=== PATIENT | female | born 1995 | race Caucasian/White ===

== ENCOUNTER 2021-09-22 23:42 | Observation (INO) | payer MEDICAID ==
[2021-09-23 00:59] LABS: CLARITY URINE CLEAR (CLEAR); COLOR URINE YELLOW (YELLOW); KETONES URINE NEGATIVE (NEGATIVE); LEUKOCYTE ESTERASE URINE NEGATIVE (NEGATIVE); NITRITE URINE NEGATIVE (NEGATIVE); OCCULT BLOOD URINE NEGATIVE (NEGATIVE); PH URINE 6.5 (4.5-8.0); PROTEIN URINE NEGATIVE (NEGATIVE); UROBILINOGEN URINE 0.2 E.U./dL (0.2-1.0)
[2021-09-23 01:25] LABS: *AMPHETAMINES SCREEN URINE NEGATIVE (NEGATIVE); *BARBITURATES SCREEN URINE NEGATIVE (NEGATIVE); *BENZODIAZEPINES SCREEN URINE NEGATIVE (NEGATIVE); *COCAINE SCREEN URINE NEGATIVE (NEGATIVE); CANNABINOID URINE SCREEN NEGATIVE (NEGATIVE); METHADONE URINE SCREEN NEGATIVE (NEGATIVE); OPIATES URINE SCREEN NEGATIVE (NEGATIVE); PHENCYCLIDINE URINE SCREEN NEGATIVE (NEGATIVE)
[2021-09-23] MEDS ORDERED: PREN-176 PO (01:52)
== END 2021-09-23 02:05 | disposition home or self-care (01) ==
LOC: 8 EST LDRP 23:42
PROVIDERS: ADMIT Obstetrics & Gynecology; ATTEND Obstetrics & Gynecology
DX: O26.893 Other specified pregnancy related conditions, third trimester (principal); R10.9 Unspecified abdominal pain; O62.9 Abnormality of forces of labor, unspecified; O99.891 Other specified diseases and conditions complicating pregnancy; M54.9 Dorsalgia, unspecified; Z3A.30 30 weeks gestation of pregnancy; Z79.899 Other long term (current) drug therapy
CPT/HCPCS: 59025; 80305; 81003; G0378; 99281

== ENCOUNTER 2021-10-31 16:37 | Emergency (ER) | payer MEDICAID ==
[~2021-10-31] VITALS: Ht 177.8 cm; Wt 153.0 kg
[~2021-10-31 16:37] MED LIST: PREN-176 PO
[2021-10-31 16:42] VITALS: BP 138/76
== END 2021-10-31 18:58 | disposition left against medical advice (07) ==
LOC: EDSTATUS 16:37 → ER 16:38
DX: O26.93 Pregnancy related conditions, unspecified, third trimester (principal); R07.9 Chest pain, unspecified; R11.0 Nausea; R42 Dizziness and giddiness; Z3A.36 36 weeks gestation of pregnancy
CPT/HCPCS: 93005; 99281